=== PATIENT | male | born 1930 | race Caucasian/White ===

== ENCOUNTER 2017-05-06 05:58 | Observation (INO) | payer OTHER ==
[2017-05-05 15:22] VITALS: BMI 23.8
[2017-05-06] MEDS ORDERED: PROPOFOL 20 ML ONE ×2 (06:53→08:19)
[2017-05-06] MEDS ORDERED: MIDAZOLAM HCL 2 MG/2 ML SINGLE DOSE VIAL ONE ×2 (06:54→08:06)
[2017-05-06] MEDS ORDERED: TETRACAINE 0.5% OPHTH SOLN 2 ML BOTTLE ONE (07:10)
[2017-05-06] MEDS ORDERED: POVIDONE-IODINE 5% OPHTHALMIC PREP 30 ML SOLUTION ONE (07:10)
[2017-05-06] MEDS ORDERED: BACITRACIN 3.5 GM OPTHALMIC OINT TUBE ONE (07:10)
[2017-05-06] MEDS ORDERED: LIDOCAINE 1%/EPI 1:100000 (20 ML MULTI DOSE VIAL) ONE (07:10)
[2017-05-06] MEDS ORDERED: BUPIVACAINE HCL/PF 0.5% (5MG/ML) 10 ML VIAL ONE (07:10)
[2017-05-06] MEDS ORDERED: THROMBIN (BOVINE) 5,000 UNIT VIAL TP ONE (07:33)
[2017-05-06] MEDS ORDERED: ceFAZolin SODIUM 1 GM VIAL ONE (07:59)
[2017-05-06] MEDS ORDERED: KETAMINE HCL 200 MG/20 ML VIAL ONE (08:22)
[2017-05-06] MEDS ORDERED: ePHEDrine SULFATE 50 MG/1 ML AMPULE ONE (08:29)
[2017-05-06] MEDS ORDERED: ONDANSETRON 4 MG/2 ML VIAL ONE (08:32)
[2017-05-06] MEDS ORDERED: ONDANSETRON 4 MG/2 ML VIAL IVPUSH PRN (08:56)
[2017-05-06] MEDS ORDERED: ACETAMINOPHEN 500 MG TABLET (FP) PO PRN (08:58)
[2017-05-06] MEDS ORDERED: LACTATED RINGERS SOLUTION 1,000 ML IV SCH (09:00)
[2017-05-06 10:43] LABS: ALBUMIN 3.5 g/dl (3.5-5.0); ALK PHOS 66 U/L (32-92); ANION GAP 6 (8-16); BILIRUBIN,TOTAL 0.6 mg/dl (0.2-1.0); CALCIUM 9.2 mg/dl (8.4-10.2); CO2 28 mmol/L (22-28); CREATININE 1.4 mg/dl (0.6-1.3); GLUCOSE,RANDOM 189 mg/dl (74-106); MAGNESIUM 1.9 mg/dL (1.8-2.4); SGOT/AST 13 U/L (10-42); SGPT/ALT 14 U/L (10-40); TOT PROT 5.9 g/dl (6.4-8.3)
--- NOTE | 2017-05-06 11:17 | HP ---
CHIEF COMPLAINT: slow heart rate PCP: DR Robert Yates HISTORY OF PRESENT ILLNESS: Patient is a 86 y/o male with a past medical history of niddm, hypertension and prostate CA. Patient is s/p right ectropian of right lower eyelid, Dr Nova today. Post operatively patient was noted to be in a second degree wenkebach with a high degree of variability. He was noted to become bradycardic with a rate in the 30s. Patient was asymptomatic at all times. STAT consult was obtained for cardiology and patient was evaluated by the buzzle buffer, Dr Harrison in the PACU. Patient denies any prior cardiac history. He reports borderline high cholesterol which is currently being monitored by his PCP with dietary restrictions. He denies any shortness of breath or dyspnea upon exertion. Recent Travel: none PAST MEDICAL HISTORY: niddm, htn, prostate ca PAST SURGICAL HISTORY: arthoscopy Social History: resides with Smoking:none Alcohol:none Drugs: none Family History: son (cardiac) Allergies No Known Drug Allergies Allergy (Verified 05/06/17 07:08) HOME MEDICATIONS: Home Medications Medication Instructions Recorded Enalapril Maleate [Vasotec] 10 mg PO DAILY 05/05/17 Sitagliptin Phosphate [Januvia] 50 mg PO DAILY 05/05/17 REVIEW OF SYSTEMS CONSTITUTIONAL: Absent: fever, chills, diaphoresis, generalized weakness, malaise, loss of appetite, weight change HEENT: Absent: rhinorrhea, nasal congestion, throat pain, throat swelling, difficulty swallowing, mouth swelling, ear pain, eye pain, visual changes CARDIOVASCULAR: Absent: chest pain, syncope, palpitations, irregular heart rate, lightheadedness , peripheral edema RESPIRATORY: Absent: cough, shortness of breath, dyspnea with exertion, orthopnea, wheezing, stridor, hemoptysis GASTROINTESTINAL: Absent: abdominal pain, abdominal distension, nausea, vomiting, diarrhea, constipation, melena, hematochezia GENITOURINARY: Absent: dysuria, frequency, urgency, hesitancy, hematuria, flank pain, genital pain MUSCULOSKELETAL: Absent: myalgia, arthralgia, joint swelling, back pain, neck pain SKIN: Absent: surgical site to right lower eyelid, rash, itching, pallor HEMATOLOGIC/IMMUNOLOGIC: Absent: easy bleeding, easy bruising, lymphadenopathy, frequent infections ENDOCRINE: Absent: unexplained weight gain, unexplained weight loss, heat intolerance, cold intolerance NEUROLOGIC: Absent: headache, focal weakness or paresthesias, dizziness, unsteady gait, seizure, mental status changes, bladder or bowel incontinence PSYCHIATRIC: Absent: anxiety, depression, suicidal or homicidal ideation, hallucinations. PHYSICAL EXAMINATION Vital Signs - 24 hr 05/06/17 05/06/17 05/06/17 07:09 07:13 08:55 Temperature 98.9 F 97.8 F Pulse Rate 58 L 52 L Respiratory 16 13 Rate Blood Pressure 131/72 127/69 O2 Sat by Pulse 96 96 97 Oximetry (%) 05/06/17 05/06/17 05/06/17 09:00 09:05 09:10 Temperature 97.8 F 97.8 F 97.8 F Pulse Rate 66 67 67 Respiratory 13 14 58 H Rate Blood Pressure 127/74 124/84 131/81 O2 Sat by Pulse 97 98 98 Oximetry (%) 05/06/17 05/06/17 05/06/17 09:25 09:40 10:00 Temperature 97.8 F 97.8 F 97.8 F Pulse Rate 51 L 53 L 50 L Respiratory 11 L 12 12 Rate Blood Pressure 130/77 132/68 125/70 O2 Sat by Pulse 97 97 97 Oximetry (%) GENERAL: Awake, alert, and fully oriented, in no acute distress. HEAD: Normal with no signs of trauma. EYES: Pupils equal, round and reactive to light, extraocular movements intact, sclera anicteric, conjunctiva clear. echymosis noted to right lower eyelid, no drainage noted, No lid lag. EARS, NOSE, THROAT: Ears normal, nares patent, oropharynx clear without exudates. Moist mucous membranes. NECK: Normal range of motion, supple without lymphadenopathy, JVD, or masses. LUNGS: Breath sounds equal, clear to auscultation bilaterally. No wheezes, and no crackles. No accessory muscle use. HEART: Regular rate and rhythm, normal S1 and S2 without murmur, rub or gallop. ABDOMEN: Soft, nontender, not distended, normoactive bowel sounds, no guarding, no rebound, no masses. No hepatomegaly or splenomegaly. MUSCULOSKELETAL: Normal range of motion at all joints. No bony deformities or tenderness. No CVA tenderness. UPPER EXTREMITIES: 2+ pulses, warm, well-perfused. No cyanosis. No clubbing. No peripheral edema. LOWER EXTREMITIES: 2+ pulses, warm, well-perfused. No calf tenderness. No peripheral edema. NEUROLOGICAL: Cranial nerves II-XII intact. Normal speech. Normal gait. PSYCHIATRIC: Cooperative. Good eye contact. Appropriate mood and affect. SKIN: Warm, dry, normal turgor, no rashes or lesions noted, normal capillary refill. Laboratory Results - last 24 hr 05/06/17 05/06/17 05/06/17 07:00 08:56 10:15 Sodium 135 L Potassium 4.0 Chloride 101 Carbon Dioxide 28 Anion Gap 6 L BUN 26 H Creatinine 1.4 H Creat Clearance w eGFR 47.83 POC Glucometer 201 165 Random Glucose 189 H Calcium 9.2 Magnesium 1.9 Total Bilirubin 0.6 AST 13 ALT 14 Alkaline Phosphatase 66 Total Protein 5.9 L Albumin 3.5 ASSESSMENT/PLAN: F/E/N - low sodium/diabetic diet - replete lytes prn ppx - oob - scd - pepcid dispo: require obsv telemetry Problem List - Problem (1) Mobitz type I Wenckebach atrioventricular block Assessment/Plan: - continous cardiac monitoring - trend troponins - case discussed with buzzle buffer Dr Harrison at bedside, pt will require 24 hour cardiac monitoring, follow up with buzzle buffer for implantable loop recorder, stress, and echo as outpatient Code(s): I44.1 - ATRIOVENTRICULAR BLOCK, SECOND DEGREE (2) Hypertension Assessment/Plan: - hold norvasc, b/p at goal, strict b/p monitoring Code(s): I10 - ESSENTIAL (PRIMARY) HYPERTENSION (3) Diabetes [facility]Plan[facility] Code(s[facility] E11.9 - TYPE 2 DIABETES MELLITUS WITHOUT COMPLICATIONS Visit type - Emergency Visit Emergency Visit: Yes ED Registration Date: 05/06/17 Care time: The patient presented to the Emergency Department on the above date and was hospitalized for further evaluation of their emergent condition. - New Patient This patient is new to me today: Yes Date on this admission: 05/06/17 - Critical Care Critical Care patient: No
--- NOTE | 2017-05-06 11:32 | CONSULT ---
Consult - text type - Consultation Consultation Note: CARDIOLOGY ASKED BY DR. Mari TO SEE PT. 86 YO MAN BRADYCARDIA. PT SEEN, EXAMINED ECG'S REVIEWED. WORKING DX: A-V YARELIS WENCKEBACH PERIODS OF HIGH DEGREE A-V BLOCK FOLLOWING EYE SURGERY. INCREASED VAGAL TONE. ASYMPTOMATIC. HEMODYNAMICALLY STABLE. UNDERLYING HYPERTENSIVE - ATHEROSCLEROTIC HEART DISEASE. DOUBT ACUTE MYOCARDIAL INFARCTION/ISCHEMIA PACEMAKER NOT INDICATED IN THE ABSENCE OF SUSTAINED HIGH DEGREE A-V BLOCK OR SYMPTOMATIC GE[place]IE CARDIA. REC: ADMIT TO TELEMETRY. SERIAL TROPONIN LEVELS. IF REMAINS STABLE ANTICIPATE OUT PATIENT NON INVASIVE EVALUATION TO INCLUDE EVENT RECORDER/IMPLANTABLE LOOP RECORDER. ECHOCARDIOGRAM AND STRESS TEST THANKS. FULL NOTE DICTATED. FAMILY KEPT INFORMED. WILL FOLLOW.
[2017-05-06 12:50] LABS: BASOPHIL 0.3 % (0-2.0); EOSINOPHIL 4.2 % (0-4.5); MCHC 32.7 g/dl (32.0-35.9); MEAN PLT VOLUME 9.6 fl (7.5-11.1); PLATELET COUNT 147 K/MM3 (134-434); WHITE BLOOD COUNT 5.1 K/mm3 (4.0-10.8)
[2017-05-06 13:19] LABS: TROPONIN I (DFP) 0.04 ng/ml (0.03-0.50)
[2017-05-06] MEDS: BACITRACIN 3.5 GM OPTHALMIC OINT TUBE OD SCH ×2 (14:00→21:06)
[2017-05-06] MEDS: NEO/POLYMYX B SULF/DEXAMETH OPHTHALMIC 5ML BOTTLE OD SCH ×2 (14:00→21:05)
[2017-05-06] MEDS ORDERED: PT OWN MED DRAWER 7, Y5N ONE ×2 (17:07→21:02)
[2017-05-06 19:01] LABS: TROPONIN I (DFP) 0.04 ng/ml (0.03-0.50)
[2017-05-06 19:26] LABS: FREE T4 1.18 ng/dl (0.76-1.16); THYROID STIMULATING HORMONE 3.53 uIU/ml (0.358-3.74)
--- NOTE | 2017-05-06 22:04 | EKG ---
Test Reason : Blood Pressure : / mmHG Vent. Rate : 041 BPM Atrial Rate : 055 BPM P-R Int : 000 ms QRS Dur : 144 ms QT Int : 514 ms P-R-T Axes : 052 -06 -20 degrees QTc Int : 424 ms PROBABLE COMPLETE AV BLOCI WITH PERIODS OF JUNCTIONAL ESCAPE BEATS RIGHT BUNDLE BRANCH BLOCK SEPTAL INFARCT , AGE UNDETERMINED ABNORMAL ECG NO PREVIOUS ECGS AVAILABLE NO CLINICAL INFORMATION IS AVAILABLE REPEAT TRACING Confirmed by SHEIKH ABEL, CARLOS ([id number] on 05/06/2017 10:04:03 PM Referred By: Peyman Nova Confirmed By:CARLOS ETIENNE MD
[2017-05-06 23:05] VITALS: TEMP 98.4
[2017-05-07 02:10] LABS: TROPONIN I 0.04 ng/ml (0.00-0.05)
[2017-05-07] MEDS ORDERED: PT OWN MED DRAWER 7, Y5N ONE (06:19)
[2017-05-07] MEDS: NEO/POLYMYX B SULF/DEXAMETH OPHTHALMIC 5ML BOTTLE OD SCH (06:20)
[2017-05-07] MEDS: BACITRACIN 3.5 GM OPTHALMIC OINT TUBE OD SCH (06:21)
[2017-05-07 06:32] VITALS: BP 160/90; PULSE 85
[2017-05-07] MEDS ORDERED: sitaGLIPtin PHOSPHATE 50 MG TABLET PO SCH (07:00)
--- NOTE | 2017-05-07 09:07 | DS ---
Physical Exam: SUBJECTIVE: Patient seen and examined, patient is ambulatory throughout nursing station, denies any chest pain or shortness of breath. OBJECTIVE:Patient is a 86 y/o male with a past medical history of niddm, hypertension and prostate CA. Patient is s/p right ectropian of right lower eyelid, Dr Nova today. Post operatively patient was noted to be in a second degree wenkebach with a high degree of variability. He was noted to become bradycardic with a rate in the 30s. Patient was asymptomatic at all times. STAT consult was obtained for cardiology and patient was evaluated by the machine tool rebuilder, Dr Harrison in the PACU. Patient denies any prior cardiac history. He reports borderline high cholesterol which is currently being monitored by his PCP with dietary restrictions. He denies any shortness of breath or dyspnea upon exertion. Vital Signs Period Temp Pulse Resp BP Sys/Roberts Pulse Ox Last 24 Hr 97.7 F-98.4 F 48-85 11-58 109-160/54-90 95-99 PHYSICAL EXAM GENERAL: Awake, alert, and fully oriented, in no acute distress. HEAD: Normal with no signs of trauma. EYES: Pupils equal, round and reactive to light, extraocular movements intact, sclera anicteric, conjunctiva clear. echymosis noted to right lower eyelid, no drainage noted, No lid lag. EARS, NOSE, THROAT: Ears normal, nares patent, oropharynx clear without exudates. Moist mucous membranes. NECK: Normal range of motion, supple without lymphadenopathy, JVD, or masses. LUNGS: Breath sounds equal, clear to auscultation bilaterally. No wheezes, and no crackles. No accessory muscle use. HEART: Regular rate and rhythm, normal S1 and S2 without murmur, rub or gallop. ABDOMEN: Soft, nontender, not distended, normoactive bowel sounds, no guarding, no rebound, no masses. No hepatomegaly or splenomegaly. MUSCULOSKELETAL: Normal range of motion at all joints. No bony deformities or tenderness. No CVA tenderness. UPPER EXTREMITIES: 2+ pulses, warm, well-perfused. No cyanosis. No clubbing. No peripheral edema. LOWER EXTREMITIES: 2+ pulses, warm, well-perfused. No calf tenderness. No peripheral edema. NEUROLOGICAL: Cranial nerves II-XII intact. Normal speech. Normal gait. PSYCHIATRIC: Cooperative. Good eye contact. Appropriate mood and affect. SKIN: Warm, dry, normal turgor, no rashes or lesions noted, normal capillary refill. . LABS Laboratory Results - last 24 hr 05/06/17 05/06/17 05/06/17 08:56 10:15 12:16 WBC RBC Hgb Hct MCV MCH MCHC RDW Plt Count MPV Neutrophils % Lymphocytes % Monocytes % Eosinophils % Basophils % Sodium 135 L Potassium 4.0 Chloride 101 Carbon Dioxide 28 Anion Gap 6 L BUN 26 H Creatinine 1.4 H Creat Clearance w eGFR 47.83 POC Glucometer 165 Random Glucose 189 H Calcium 9.2 Magnesium 1.9 Total Bilirubin 0.6 AST 13 ALT 14 Alkaline Phosphatase 66 Creatine Kinase 72 Troponin I 0.04 Total Protein 5.9 L Albumin 3.5 TSH 3.53 Free T4 1.18 H 05/06/17 05/06/17 05/06/17 12:16 12:16 18:00 WBC 5.1 RBC 4.18 Hgb 13.8 Hct 42.2 MCV 101.0 H MCH 33.0 MCHC 32.7 RDW 14.0 Plt Count 147 MPV 9.6 Neutrophils % 59.0 Lymphocytes % 26.9 Monocytes % 9.6 Eosinophils % 4.2 Basophils % 0.3 Sodium Potassium Chloride Carbon Dioxide Anion Gap BUN Creatinine Creat Clearance w eGFR POC Glucometer Random Glucose Calcium Magnesium Total Bilirubin AST ALT Alkaline Phosphatase Creatine Kinase 66 Troponin I 0.04 Total Protein Albumin TSH Free T4 Cancelled 05/06/17 05/06/17 05/07/17 23:00 23:00 06:44 WBC RBC Hgb Hct MCV MCH MCHC RDW Plt Count MPV Neutrophils % Lymphocytes % Monocytes % Eosinophils % Basophils % Sodium Potassium Chloride Carbon Dioxide Anion Gap BUN Creatinine Creat Clearance w eGFR POC Glucometer 155 Random Glucose Calcium Magnesium Total Bilirubin AST ALT Alkaline Phosphatase Creatine Kinase Cancelled 64 Troponin I Cancelled 0.04 Total Protein Albumin TSH Free T4 Laboratory Tests 05/06/17 05/06/17 05/06/17 12:16 18:00 23:00 Troponin I 0.04 0.04 0.04 HOSPITAL COURSE: * patient was admitted to telemetry observation for mobitz type 1, wenkebach atrioventricular block, he was placed on continuous cardiac monitoring and remain in a mobitz type 1 wenkebach throughout his admission. troponin x 3 wnl. case discussed with machine tool rebuilder Dr Harrison at bedside, pt will require 24 hour cardiac monitoring, follow up with machine tool rebuilder for implantable loop recorder, stress, and echo as outpatient * patient has a past medical history of hypertension, norvasc was held as per machine tool rebuilder recommendations, b/p at goal. * patient was has a past medical history of niddm januvia was continued\ PLAN - follow up with the machine tool rebuilder within [address] Harrison machine tool rebuilder. - return precautions reviewed, ie chest pain, shortness of breath, or dizziness. Date of Admission:05/06/17 Date of Discharge: 05/07/17 Discharge Summary Reason For Visit: ECTROPION RIGHT LOWER EYELID Current Active Problems Diabetes (Acute) Hypertension (Acute) Mobitz type I Wenckebach atrioventricular block (Acute) Condition: Improved - Instructions Diet, Activity, Other Instructions: resume low carbohydrate and sodium diet you were admitted to observation because your heart rhythm is a second degree wenkebach, it is very important that you follow up with the machine tool rebuilder within 48 hours. continue the maxitrol eye drops as prescribed avoid any bending or heavy lifting elevate the head of bed at 30degrees for the next 48 hours please follow up with Dr Nova within 1 week if any chest pain, shortness of breath or dizziness develops please return to the emergency department Referrals: Peyman Nova MD [Staff Physician] - Robert Cadet [Non Staff, Medical] - Mele Harrison MD [Staff Physician] - Disposition: HOME - Home Medications Comprehensive Discharge Medication List: Ambulatory Orders Enalapril Maleate [Vasotec] 10 mg PO DAILY 05/05/17 Sitagliptin Phosphate [Januvia] 50 mg PO DAILY 05/05/17 Problem List - Problems (1) Mobitz type I Wenckebach atrioventricular block Code(s): I44.1 - ATRIOVENTRICULAR BLOCK, SECOND DEGREE (2) Hypertension Code(s): I10 - ESSENTIAL (PRIMARY) HYPERTENSION (3) Diabetes Code(s): E11.9 - TYPE 2 DIABETES MELLITUS WITHOUT COMPLICATIONS
--- NOTE | 2017-05-07 10:09 | PN ---
Progress Note (short form) - Note Progress Note: 86M POD1 s/p ectropion repair right lower eyelid developed AV block post operatively. At recommendation of cardiology consult patient admitted for overnight observation. Pt asymptomatic, AVSS, discharged home today.
--- NOTE | 2017-05-07 10:15 | OP ---
DATE OF OPERATION: 05/06/2017 PREOPERATIVE DIAGNOSIS: Epiphora, right eye, in the setting of marked medial canthal tendon and lateral canthal tendon laxity, ectropion, punctal eversion, and nasolacrimal obstruction. POSTOPERATIVE DIAGNOSIS: Epiphora, right eye, in the setting of marked medial canthal tendon and lateral canthal tendon laxity, ectropion, punctal eversion, and nasolacrimal obstruction. PROCEDURE: 1. Medial canthal tendon plication, right lower lid. 2. Lateral tarsal strip, right lower lid. 3. Conjunctivoplasty with punctal inversion and punctal dilatation, right lower lid. SURGEON: Nannette Fatiam MD ANESTHESIA: Local with sedation. COMPLICATONS: None. ESTIMATED BLOOD LOSS: 2-3 mL. OPERATIVE REPORT: Patient was brought to the operating room and placed on the operating room table. Vital signs were monitored by Anesthesia. Tetracaine was placed in both eyes. A time-out was performed. Marking pen was used to idalia curvilinear incision in the medial canthal region overlying the medial canthal tendon extending to the medial portion of the tarsotendinous junction at the right lower lid and a lateral canthal line was marked, as well. After intravenous sedation, a 50/50 mixture of 2% Xylocaine with 1:100,000 epinephrine and 0.5% Marcaine was injected in the medial canthus, medial portion of the lower lid, lateral canthus down to periosteum and lateral third in the upper/lower lid. Patient was prepped and draped in the usual sterile fashion exposing both eyes, and the following procedure was performed. A curvilinear incision was incised with a 15 blade. Gentle spreading with Elvis scissors was used to identify the medial canthal tendon inferiorly and to identify the tarsotendinous junction. A double-arm 5-0 Prolene was used to grasp the medial portion of the tarsotendinous junction. The suture was then passed under the orbicularis, then, under the anterior limb of the medial canthal tendon, where it was tied with appropriate tension to prevent migration of the punctum lateral to the nasal limbus, but not to kink the canaliculus. After this was tied, Prolene was buried and the skin was closed with running 6-0 plain suture with antibiotic irrigation. Attention was turned to the lateral canthus, where a lateral canthal incision was made through skin, subcutaneous, and previous scar tissue. The inferior aishwarya of the lateral canthal limb was from the superior aishwarya and from the orbital rim with sharp dissection. This overlap marked with sterile marking pen, divided into an anterior and posterior level. The anterior level was excised. The posterior level was denuded of epithelium posteriorly and superiorly, and released from a retractor tension inferiorly, and tarsal strip which was overlapped at the orbital rim. The lateral tarsal strip was secured with a double-arm 5-0 Prolene, reinforced with 6-0 Vicryl lasso suture, and it was passed to internal surface of the orbital rim at the junction with the superior aishwarya of the lateral canthal tendon, being relatively symmetric with the canthal angle laterally, where it would eventually be tied, reattaching the tarsal strip. The lateral canthal angle was reformed with a buried 5-0 chromic to the lopez line of the upper and lower lids recreating the lateral canthus. The lid was everted nasally as the punctum remained vertical, and a subpunctal earl of conjunctival retractor was excised, exposing postorbicularis fascia, a small amount of fat was excised, and cautery was obtained, used for hemostasis. Antibiotic irrigation was used, and double-arm 4-0 chromic was used to grasp the inferior retractors, then, the superior tarsoconjunctiva straddling the punctum, then, the inferior conjunctiva exiting through the full-thickness island. The 6-0 plain suture was now placed in the skin lateral to the lateral canthus. The Prolene was tied. The excess tarsal strip was trimmed and sutured over the Prolene with a 5-0 chromic. A subcuticular 5-0 chromic was placed into the lateral canthal wound, and the wound was closed with an interrupted 6-0 plain suture. The punctum was now dilated widely with a punctal dilator, and then, the punctum inverting suture was tied on the skin surface. Bacitracin ointment was placed on the sutures of the nasal eyelid in the inferior fornix and on the lateral eyelid, where the sutures were in the lateral canthus, and the patient was taken to the recovery room in stable condition. NANNETTE FATIMA M.D. [id number]
--- NOTE | 2017-05-07 12:25 | CONS ---
DATE OF REQUEST AND DATE OF CONSULTATION: 05/06/2017 REQUESTING PHYSICIAN: Jessica Ortiz NP, and Peyman Nova MD PATIENT PROFILE: The patient is an 86-year-old man admitted on May 06, 2017, because of bradycardia. The patient has no known heart disease. There is no history of a myocardial infarction, angina, or congestive heart failure. The patient was in his usual state of health until the day of admission when he underwent eye surgery by Dr. Nova for drooping of the lower lids. Postoperatively, he was found to have a heart rate in the 30s. The electrocardiogram monitor demonstrated sinus rhythm with periods of AV renny Wenckebach and high degree AV block, and a cardiology consultation was requested. The patient denies any symptoms of chest pain, shortness of breath, palpitations, or syncope. There is a previous history of mild hypertension. There is no history of diabetes or hyperlipidemia. MEDICATIONS: Prior to admission include Vasotec 20 mg per day and Xanax. Metformin has been written in the chart, although patient denies taking this medication. ALLERGIES: None. PRIOR MEDICAL HISTORY: Appendectomy, hypertension, prostatic carcinoma treated with radiation therapy, rotator cuff tear, arthritis, left knee osteoarthritis requiring arthroscopic surgery. ? yqh-uafsfwi-jtbhyatpn diabetes. SOCIAL HISTORY: The patient lives at home with his . There is no history of alcohol abuse. He does not smoke. His son was a crossing flagman. REVIEW OF SYSTEMS: Endocrine: No history of thyroid disease. Pulmonary: No hemoptysis. Cardiac: No chest pain, no edema, and no syncope. PHYSICAL EXAMINATION: General: The patient appears well, awake and alert, lying flat, in no distress. Vital signs: The temperature afebrile, blood pressure 120/70, the heart rate varies from 36 to 50 per minute, oxygen saturation is 97%. Head and neck: There is no head and neck vein distension. The thyroid is not palpable. The right eye has redness around it. Lungs: The lung tom are clear. Heart: The heart sounds are normal. No murmur, no gallop is audible. The heart sounds are irregular. Abdomen: Is soft. There is no focal neurological deficit. There is no peripheral edema. DATA BASE: The electrocardiogram prior to admission preoperative on April 29, 2017, demonstrated a sinus mechanism with premature ventricular polarizations and a right bundle branch block. There are pauses noted. A long rhythm strip is not available. The electrocardiogram in the recovery room revealed sinus rhythm with periods of AV renny Wenckebach, right bundle branch block, and heart rates about 40 per minute. There are no acute ST and T-wave changes seen. Analysis of the rhythm strips demonstrate periods of high degree AV block, ectopic atrial beats, and AV renny Wenckebach. LABORATORY STUDIES: Include normal electrolytes, the BUN 26, creatinine 1.4, the glucose is 189. Troponin level is pending. IMPRESSION: The working diagnosis is atrioventricular renny Wenckebach with periods of high degree atrioventricular block following eye surgery secondary to an increased vagal tone. The patient is asymptomatic and hemodynamically stable. There is probable underlying shnyzxpupifw-dcopviia-pmtbaxyfyviyjea heart disease as a contributing factor to the conduction system disease. I doubt the presence of an acute myocardial ischemic/ischemia. Pacemaker implantation is not indicated at this time in the absence of sustained high degree AV block or symptomatic bradycardia. RECOMMENDATIONS: I recommended the followin. Admit to telemetry unit. 2. Serial troponin levels. 3. If the patient remains stable without sustained high degree AV block, then wound anticipate outpatient noninvasive evaluation to include event recorder/implantable loop recorder, echocardiogram, and stress study. Permanent pacemaker implantation will be dictated by the patients clinical course, the above studies, etc. Thank you for allowing me to take part in the care of this pleasant patient. Will follow along with you. ANA VAUGHN M.D. JUSTINE/[id number] cc: MD Robert Grullon MD, primary care physician
--- NOTE | 2017-05-09 15:15 | EKG ---
Test Reason : Blood Pressure : / mmHG Vent. Rate : 046 BPM Atrial Rate : 066 BPM P-R Int : 000 ms QRS Dur : 146 ms QT Int : 500 ms P-R-T Axes : 056 -13 -11 degrees QTc Int : 437 ms sR with ? wenchebach RIGHT BUNDLE BRANCH BLOCK WHEN COMPARED WITH ECG OF 06-MAY-2017 10:09, CRITERIA FOR SEPTAL INFARCT ARE NO LONGER PRESENT Confirmed by MD MARILIA, FILIBERTO ([id number]) on 05/09/2017 3:15:47 PM Referred By: Peyman Nova Confirmed By:FILIBERTO CAPELLAN MD
--- NOTE | 2017-05-13 21:03 | EKG ---
Test Reason : Blood Pressure : / mmHG Vent. Rate : 060 BPM Atrial Rate : 068 BPM P-R Int : 000 ms QRS Dur : 148 ms QT Int : 484 ms P-R-T Axes : 040 -14 -08 degrees QTc Int : 484 ms PROBABLY SINUS WITH MARKED FIRST DEGREE AV BLOCK ANDPERIODS OF SECOND DEGREE MOBITZ 1 AV BLOCK RIGHT BUNDLE BRANCH BLOCK ABNORMAL ECG WHEN COMPARED WITH ECG OF 06-MAY-2017 10:11, CURRENT UNDETERMINED RHYTHM PRECLUDES RHYTHM COMPARISON, NEEDS REVIEW QT HAS LENGTHENED REPEAT TRACING Confirmed by CAROLS ETIENNE MD ([id number]) on 05/13/2017 9:03:16 PM Referred By: Peyman Nova Confirmed By:CARLOS ETIENNE MD
== END 2017-05-07 09:28 | disposition home or self-care (01) ==
LOC: FASU 05:58 → INTOOBSV 11:17 → UNDOADMOB 11:17 → FM/S 11:17
PROVIDERS: ADMIT Internal Medicine; ATTEND Nurse Practitioner Family
PROC: 08N Eye, Release (ICD-10-PCS; 2017-05-06)
PROC: 08BQ0ZZ Excision of Right Lower Eyelid, Open Approach (ICD-10-PCS; principal; 2017-05-06 07:59)
DX: I44.1 Atrioventricular block, second degree (principal); I10 Essential (primary) hypertension; E11.9 Type 2 diabetes mellitus without complications; Z85.46 Personal history of malignant neoplasm of prostate; H02.112 Cicatricial ectropion of right lower eyelid; H04.201 Unspecified epiphora, right side; H04.521 Eversion of right lacrimal punctum; H04.551 Acquired stenosis of right nasolacrimal duct
CPT/HCPCS: 36415; 80053; 83735; 84439; 84443; 84484; 85025; 86618; 93005; 93010; 94760; G0378